=== PATIENT | female | born 1955 | race Caucasian/White ===

== ENCOUNTER 2017-03-25 06:51 | Day surgery (SDC) | payer BC, OTHER ==
[~2017-03-25] VITALS: Ht 160 cm; Wt 90.3 kg
--- NOTE | ~2017-03-25 | S ---
[facility] [place] [address] [place] [address] SURGICAL PATH RPT PROCEDURE Name: JAMEY TARANGO Room #: [facility]P [facility].#: [id number] Admission: 03/25/17 Date of : 53 Discharge: 03/25/17 Report #: [id number] Path Case #: [id number] PATHOLOGY REPORT COLLECTION DATE: 03/25/2017 RECEIVED DATE: 03/25/2017 SUBMITTING PHYS: Dr. Jordan Duque OTHER PHYS: SPECIMEN(S) RECEIVED: A.Basal cell carcinoma left lower lid * * * * * * * * * * * * FINAL DIAGNOSIS: Lower eye lid, left, excision: - No residual carcinoma identified. - Focal chronic inflammation and histiocytes, suggestive of previous procedure site. PATHOLOGIST: Gasper Borja M.D. REPORT ELECTRONICALLY SIGNED BY: Gasper Borja M.D. DATE/TIME: 03/29/2017 09:07 * * * * * * * * * * * * GROSS PATHOLOGY: The specimen is received fresh for frozen section in a container labeled with the patient's name and "basal cell carcinoma left lower lid". The specimen consists of a white-pink ellipse of skin measuring 1.4 x 0.5 x 0.3 cm. The specimen is received oriented from the OR. The specimen is inked as follows: 12:00 to 3:00 - green, 3:00 to 6:00 - black, 6:00 to 12:00 - blue. The specimen is serially sectioned and entirely submitted for frozen section in one cassette labeled FSA1. Four levels are cut for frozen section diagnosis. The specimen is entirely submitted. (MAP:[facility]; 03/25/2017) FROZEN SECTION DIAGNOSIS: FSA!: "Basal cell carcinoma left lower lid": - "Margins negative for tumor". - Reported to Dr. Duque at 10:10 am in 03/25/2027. Frozen section performed by Dr. Alberto Borja at [facility] [address] [place] [address] CLINICAL HISTORY: [address] [place] [address] SURGICAL PATH RPT PROCEDURE Name: JAMEY TARANGO Room #: [facility] M.R.#: [id number] Admission: 03/25/17 Date of : 53 Discharge: 03/25/17 Report #: [id number] Path Case #: [id number] None Provided INITIAL CPT CODE(S): A; 22446, 94180 Professional services performed by [facility] at [facility] [address] [place] [address] Technical services performed by [facility] at [address] [place] [address], [facility] [address], [place] [address]. [facility] [address] [place] [address] PHONE: [phone] DIRECTOR: Shaun Farfan M.D. * * * END OF REPORT * * *
--- NOTE | ~2017-03-25 | O ---
[facility] [place] [address] OPERATIVE REPORT Name: JAMEY TARANGO Room #: 150-18 [facility]#: [id number] Admission: 03/25/17 Attend Phys: Jordan Duque MD Discharge: Date of : 53 Report #: [id number] THIS REPORT FOR: //name// CC: FAM unknown Jordan Duque DATE OF SERVICE: 03/25/2017 PREOPERATIVE DIAGNOSIS: Basal cell carcinoma of left lower lid. POSTOPERATIVE DIAGNOSIS: Basal cell carcinoma of left lower lid. PROCEDURE: Excision of basal cell carcinoma of left lower lid with myocutaneous flap repair of defect. SURGEON: Jordan Duque M.D. GRANITE [employer]ANDB[employer]ER APPRENTICE: None. ANESTHESIA: MAC. COMPLICATIONS: None. INDICATIONS FOR SURGERY: This pleasant 62-year-old woman has a biopsy proven basal cell carcinoma in her left lower lid and cheek. She presents today for excision of that tumor with frozen sections and subsequent reconstruction of that defect. Informed consent was obtained to include but not limit to the potential risk for loss of vision, bleeding, infection, failure to improve the problem and the potential need for further surgery or treatment. DESCRIPTION OF PROCEDURE: The patient was taken to the operating room where 2% Xylocaine with epinephrine mixed with equal parts of 0.75% Marcaine with Wydase was administered transcutaneously to the left lower lid, the left cheek and the left lateral canthus. The infratemporal fossa was similarly anesthetized. The patient was subsequently prepped and draped in the usual sterile fashion. A fine tip skin marking pen was then utilized to outline the lesion including 1-2 mm of normal appearing tissue. The incisions were then made with a 15-blade and the dissection was carried down through the orbicularis muscle. The deep excision was then accomplished with a Jonathan scissor. The specimen was oriented on a drawing for the waiting pathologist as hemostasis was achieved with diligent pinpoint monopolar cautery. The pathologist snap froze that tissue and found that the margins were clear. The tumor having been extirpated, the area was widely undermined to allow myocutaneous flap to be developed. Hemostasis was then re-achieved. The flap [address] [address] OPERATIVE REPORT Name: JAMEY TARANGO Room #: 150-18 [facility].#: [id number] Admission: 03/25/17 Attend Phys: Jordan Duque MD Discharge: Date of : 53 Report #: [id number] was then advanced and secured with interrupted 6-0 plain gut sutures oriented in a manner to allow the final result to be parallel to relaxed skin tension line. The wound was then cleaned and dressed with erythromycin ophthalmic ointment and the patient subsequently transported to the recovery area having tolerated the procedure well with no anesthetic or operative complications being noted. By: [id number] Jordan Duque MD /nt
[~2017-03-25 06:51] MED LIST: IBUPROFEN 200200 M1 PO; TYLENOL325 MG PO
[2017-03-25 11:28] VITALS: BP 153/86
== END 2017-03-25 10:45 | disposition home or self-care (01) ==
LOC: OR 06:51 → TBA 06:52 → OR 10:45
DX: C44.119 Basal cell carcinoma of skin of left eyelid, including canthus (principal); Z90.49 Acquired absence of other specified parts of digestive tract; Z98.890 Other specified postprocedural states; Z90.710 Acquired absence of both cervix and uterus; Z98.41 Cataract extraction status, right eye; Z98.42 Cataract extraction status, left eye; Z96.1 Presence of intraocular lens; Z96.651 Presence of right artificial knee joint
CPT/HCPCS: 50010; 50101; 50398; 51636; 56531; 62110; 62850; 70005